=== PATIENT | female | born 1985 | race Caucasian/White ===

== ENCOUNTER 2021-03-20 11:51 | Emergency (ER) | payer BC, SELFPAY ==
[2021-03-20 12:10] VITALS: BP 128/74; PULSE 64; RESP 24; TEMP 37.1; O2SAT 99
--- NOTE | 2021-03-20 12:17 | ED.FEMALEGU ---
HPI - Female Genitourinary General Chief complaint: Urogenital-Female Stated complaint: uti complaint Source: patient and RN notes reviewed Limitations: no limitations History of Present Illness HPI Narrative: The patient, a non-smoker/occasional drinker, presents with 3-day suprapubic discomfort and dysuria this morning-reminiscent of prior UTIs. No fever, hematuria/urgency/frequency, vomiting/diarrhea, discharge/bleeding?she is G2, P2; LMP 10 February. She has mild nausea; late day [id number] urinalysis noncontributory. Patient would like antibiotics pending culture results Related Data Allergies Allergy/AdvReac Type Severity Reaction Status Date / Time naproxen Allergy Mild Hives Verified 03/20/21 12:34 Review of Systems Review of Systems: General/Constitutional: No weight loss,fever Eyes: N0: Redness,discharge Ears/Nose/Throat: No: Epistaxis,ear discharge Respiratory: Denies: Hemoptysis Gastrointestinal: No Vomiting, Bleeding-rectal Skin: No Lumps, eruption Neurologic: No Focal Weakness,Sz Hematologic: Denies: Petechiae/Purpura Psychiatric: No: Suicida ideationl All Other Systems: Reviewed and Negative [facility] Family History Family History (Updated 09/26/17 @ 15:09 by DOCTOR UNKNOWN) Grandparent Diabetes mellitus Carcinoma of colon Social History Social History Smoking status: Never smoker Second hand tobacco smoke exposure: No Alcohol intake: current Comments At time of signature, agree with nursing past medical, surgical, social and family history. There is no relevant family history pertinent to the presenting complaint Exam Narrative: General Appearance: Well appearing, Conjunctiva clear Mouth/Throat: Normal appearing, Normal lips,Neck: Supple Respiratory: Airway patent, No respiratory distress Cardiovascular: RRR Abdomen: Soft, definite suprapubic tenderness, no CVAT Musculoskeletal: Full ROM Skin: Warm, Dry Neurological: A&O x3, Normal affect Course Vital Signs Vital signs: Vital Signs Temperature 98.7 F 03/20/21 12:10 Pulse Rate 64 03/20/21 12:10 Respiratory Rate 24 H 03/20/21 12:10 Blood Pressure 128/74 03/20/21 12:10 Pulse Oximetry 99 03/20/21 12:10 Temperature 98.7 F 03/20/21 12:10 Pulse Rate 64 03/20/21 12:10 Respiratory Rate 24 H 03/20/21 12:10 Blood Pressure 128/74 03/20/21 12:10 Pulse Oximetry 99 03/20/21 12:10 MDM - Female Genitourinary Lab Data Labs: Urine Glucose Negative Reference Range: Negative Urine Bilirubin Negative Reference Range: Negative Urine Ketone Negative Reference Range: Negative Urine Specific Guston 1.015 Reference Range:1.001-1.035 Urine Blood Negative Reference Range: Negative * * Urine pH 5.5 Reference Range: 5.0-9.0 Urine Protein Negative Reference Range: Negative Urine Urobilinogen 0.2 Reference Range: 0.2-1.0 Urine Nitrate Negative Reference Range: Negative Urine Leukocyte Negative Reference Range: Negative Urine Color Yellow Reference Range: Yellow Urine Characteristics Clear Urine Characteristics Cloudy
== END 2021-03-20 12:24 | disposition home or self-care (01) ==
PROVIDERS: Emergency Provider Emergency Medicine; PCP Family Medicine
DX: R30.0 Dysuria (principal)
CPT/HCPCS: 81003; 87086; 99213; G0463

== ENCOUNTER 2021-03-24 12:52 | Emergency (ER) | payer BC, SELFPAY ==
--- NOTE | 2021-03-24 13:00 | ED.FEMALEGU ---
HPI - Female Genitourinary General Chief complaint: Urogenital-Female Stated complaint: uti complaints Time Seen by Provider: 03/24/21 13:04 Source: patient and RN notes reviewed Mode of arrival: ambulatory Limitations: no limitations History of Present Illness HPI Narrative: Freya ambulated into the [facility] today with c/o UTI s ymptoms. She was a patient here on 03/20 with similar symptoms . She was put on course of Bactrim. Urine culture result was negative for any bacterial growth. She only took two doses of Bactrim, took 6 doses of old Macrobid. She complains of bilateral suprapubic pain and being tired. She just started Bactrim yesterday . She is also taking AZO OTC. MD elicited complaint: dysuria Related Data Allergies Allergy/AdvReac Type Severity Reaction Status Date / Time naproxen Allergy Mild Hives Verified 03/24/21 13:13 Review of Systems Review of Systems: CONSTITUTIONAL: Denies body aches, fever, chills, or sweats. EYES: Denies visual changes, redness, or discharge. ENT: Denies rhinorrhea, congestion, sore throat, or otalgia. CARDIOVASCULAR: Denies chest pain, palpitations, or edema. RESPIRATORY: Denies cough or dyspnea. GASTROINTESTINAL: Denies abdominal pain, nausea, vomiting, or diarrhea. GENITOURINARY: + dysuria or hematuria. SKIN: Denies rash, itching, or wounds. MUSCULOSKELETAL: Denies back pain, joint pain, or myalgia. NEUROLOGIC: Denies headache, numbness, tingling, or weakness. PSYCH: Denies depression or anxiety. All systems reviewed & are unremarkable except as noted in HPI and below PMFSH Family History Family History Grandparent Diabetes mellitus Carcinoma of colon Social History Social History Smoking status: Never smoker Second hand tobacco smoke exposure: No Alcohol intake: current Exam Narrative: GENERAL: Well-appearing, well-nourished, and in no acute distress. HEAD: Normocephalic, atraumatic. EYES: EOMI. No redness or drainage. Conjunctivae normal. ENT: Mucous membranes pink and moist. Nares clear. No rhinorrhea. NECK: Normal AROM. Supple. No lymphadenopathy. CHEST: No respiratory distress. Clear to auscultation. HEART: Regular rate and rhythm. No murmur appreciated. Normal peripheral pulses. ABDOMEN: Soft, nontender, nondistended, normal active bowel sounds.; Patient has tenderness over the suprapubic area. Patient also has tenderness to bilateral lower back. MUSCULOSKELETAL: No bony tenderness. EXTREMITIES: Normal range of motion. No edema. SKIN: Warm, dry, no rash. Capillary refill normal. Normal skin turgor. NEURO: No focal deficits. Alert and oriented x3. Gait steady. PSYCH: Normal affect. No signs of depression or anxiety. Course Vital Signs Vital signs: Vital Signs Temperature 36.3 C L 03/24/21 13:10 Pulse Rate 85 03/24/21 13:10 Respiratory Rate 18 03/24/21 13:10 Blood Pressure 130/72 03/24/21 13:10 Pulse Oximetry 99 03/24/21 13:10 Temperature 36.3 C L 03/24/21 13:10 Pulse Rate 85 03/24/21 13:10 Respiratory Rate 18 03/24/21 13:10 Blood Pressure 130/72 03/24/21 13:10 Pulse Oximetry 99 03/24/21 13:10 Reviewed. Pt has been instructed to follow up with her PCP regarding her elevated blood pressure today. MDM - Female Genitourinary MDM Narrative Medical decision making narrative: Patient took Macrobid 1 pill daily for 3 days. This was an old prescription she had at home. She just started the Bactrim yesterday and has taken 2 doses. Patient's urine today was negative except for positive nitrates. Patient did have Azo. Patient has suprapubic tenderness with palpation. Patient also has low back pain. The antibio gram per [facility] shows that Bactrim has an increased resistance. Patient will be switched to Cipro for 5 days. Patient was encouraged to see her primary care physician for continued
[2021-03-24 13:10] VITALS: BP 130/72; PULSE 85; RESP 18; TEMP 36.3; O2SAT 99
== END 2021-03-24 13:58 | disposition home or self-care (01) ==
PROVIDERS: Emergency Provider Nurse Practitioner Family; PCP Family Medicine
DX: R30.0 Dysuria (principal)
CPT/HCPCS: 81003; 87086; 99213; G0463

== ENCOUNTER 2023-03-29 17:04 | Emergency (ER) | payer BC, SELFPAY ==
[2023-03-29] VITALS (10 sets, daily range): BP systolic 100–131; BP diastolic 54–86; PULSE 67–86; RESP 16–17; TEMP 36.9; O2SAT 96–100
--- NOTE | 2023-03-29 17:40 | ECG_ITS ---
Measurements Intervals Griffin Rate: 60 P: 59 MN: 139 QRS: -23 QRSD: 93 T: 23 QT: 376 QTc: 376 Interpretive Statements SINUS RHYTHM BORDERLINE LEFT AXIS DEVIATION [QRS AXIS < -20] LOW QRS VOLTAGE IN PRECORDIAL LEADS [QRS DEFLECTION < 1.0 mV IN CHEST LEADS] BORDERLINE ECG NO PREVIOUS ECG AVAILABLE FOR COMPARISON Electronically Signed On 03-30-2023 8:59:27 SCHEDULING CLERK by Mihai Del Toro M.D.
--- NOTE | 2023-03-29 17:40 | ED.ABDPAIN ---
HPI - Abdominal Pain General Chief Complaint: Abdominal Pain Stated Complaint: ABD PAIN Time Seen by Provider: 03/29/23 17:09 History of Present Illness HPI narrative: 37 y/o F reports for evaluation for generalized abdominal discomfort, bloating, reflux and nausea after eating x2 weeks. Pt states she has a history of reflux but has not been taking medications for this. She also states her stools have been darker than usual, however she denies gross blood and melena. Abdominal surgeries include tubal ligation. She denies chest pain, dyspnea, fever, vomiting, diarrhea, dysuria, hematuria. No known history of gastric or duodenal ulcers. Pt states she does not use NSAIDs often and drinks a couple of alcoholic drinks per week. She is not anticoagulated. She is currently not having pain. Related Data Allergies Allergy/AdvReac Type Severity Reaction Status Date / Time naproxen Allergy Mild Hives Verified 05/29/22 09:39 Review of Systems Review of Systems: CONSTITUTIONAL: Denies fever, chills, or sweats. EYES: Denies visual changes, redness, or discharge. ENT: Denies rhinorrhea, congestion, sore throat, or otalgia. CARDIOVASCULAR: Denies chest pain, palpitations, or edema. RESPIRATORY: Denies cough or dyspnea. GASTROINTESTINAL: See HPI GENITOURINARY: Denies dysuria or hematuria. SKIN: Denies rash or itching. MUSCULOSKELETAL: Denies back pain, joint pain, or myalgia. NEUROLOGIC: Denies headache, numbness, or weakness. PSYCHIATRIC: Denies anxiety or depression. 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 Surgical History Surgical History History of bilateral salpingectomy (02/24/20) History of colposcopy with cervical biopsy 12/07/12 LGSIL 12/15/13 +HPV History of gynecologic surgery (02/24/20) hscope d&c/endometrial ablation/(B) lscope salpingectomy--menometrorrhagia/dysmenorrhea/undesired fertility Family History Family History Grandparent Diabetes mellitus maternal grandfather Carcinoma of colon maternal grandfather Father Esophageal cancer Throat cancer Mother Anxiety Social History Social History Smoking status: Never smoker Second hand tobacco smoke exposure: No Alcohol intake: current Drinks per week: 1 Substance use: never Substance use type: does not use Living arrangements: with family Additional living arrangements comments: Occupation/Education: occupation Additional occupation/education comments: medical billing Gender identity (if verbalized by the patient): Female Sexual Orientation (if Verbalized by the Patient): Straight or Heterosexual Exam Narrative: GENERAL: Well-appearing, well-nourished, and in no acute distress. Patient resting comfortably in exam bed. She is pleasant and conversational. HEAD: Normocephalic, atraumatic. EYES: PERRLA and EOMI. ENT: Nares clear, no rhinorrhea or epistaxis. Mucous membranes moist. NECK: Supple. CHEST: Clear to auscultation. No respiratory distress. HEART: Regular rate and rhythm. No murmur heard. Normal peripheral pulses. ABDOMEN: Soft, nontender, nondistended, normal active bowel sounds. No guarding, rebound or rigidity. No CVA tenderness. Negative Camarena's and McBurney's. Rectal exam without hemorrhoids, fissures, melena or hematochezia. Hemoccult is negative
[2023-03-29] MEDS: SODIUM CHLORIDE 0.9% IV 1,000 ML 999 ML IV CONT (18:01)
[2023-03-29] MEDS: PANTOPRAZOLE SODIUM IV 40 MG VIAL IV PUSH (18:02)
[2023-03-29] MEDS: BELLADONNA ALK/PHENOB ELIX 10 ML, MAG HYDROX/ALUMINUM HYD/SIMETH 30 ML, LIDOCAINE HCL 2... PO (18:05)
[2023-03-29 18:10] LABS: Basophils Percent Auto 0.4 % (0.2-1.2); Eosinophils Absolute Auto 0.4 K/mm3 (0-0.3); Eosinophils Percent Auto 4.2 % (0-4.4); Hematocrit 45.8 % (37.0-47.0); Hemoglobin 15.3 g/dL (12.0-15.0); Immature Granulocyte Absolute 0.04 K/mm3 (0.00-0.031); Immature Granulocyte Percent A 0.4 % (0-0.5); Lymphocytes Absolute Auto 2.92 K/mm3 (0.9-3.2); Lymphocytes Percent Auto 30.1 % (18.3-44.2); Mean Corpuscular HGB Conc 33.4 g/dl (32-36); Mean Corpuscular Hemoglobin 30.5 pg (26-34); Mean Corpuscular Volume 91.2 fl (80-100); Mean Platelet Volume 11.7 fl (7.4-10.4); Monocytes Absolute Auto 0.6 K/mm3 (0.1-0.6); Monocytes Percent Auto 5.9 % (2.6-8.5); Neutrophils Absolute Auto 5.7 K/mm3 (1.3-6.7); Platelet Count Result 262 k/mm3 (150-375); Red Blood Count 5.02 M/mm3 (4.2-5.4); Red Cell Distribution Width 12.6 % (11.5-14.5); White Blood Count 9.7 K/mm3 (4.5-10.0)
[2023-03-29 18:24] LABS: Alanine Aminotransferase 21 U/L (6-35); Albumin Level 4.7 g/dL (3.5-5.1); Alkaline Phosphatase 66 U/L (38-126); Anion Gap 8 mmol/L (8-16); Aspartate Amino Transferase 26 U/L (14-36); Bilirubin,Total 0.6 mg/dL (0.2-1.3); Blood Urea Nitrogen 12 mg/dL (7-17); Carbon Dioxide 25 mmol/L (22-30); Chloride 105 mmol/L (98-107); Estimated CRCL calculation 127 ml/min; Estimated Glomerular Filt Rate > 60; Glucose 93 mg/dL (65-110); Lipase 94 U/L (23-300); Sodium 138 mmol/L (137-145)
[2023-03-29 18:34] LABS: Appearance Urine Cloudy (Clear); Bacteria Urine 4+ /hpf; Bilirubin Urine Negative (Negative); Blood Urine Trace (Negative); Color Urine Yellow (Yellow); Glucose Urine UA Negative (Negative); Ketones Urine Negative (Negative); Leukocyte Esterase Ur 2+ LEU/UL (Negative); Need Manual Microscopic Reviewed; Nitrate Urine Negative (Negative); Protein Urine Negative (Negative); RBC Urine 21-50 /hpf (0-2); Specific Grav Ur 1.024 (1.001-1.035); Squamous Epithelial Cell Urine Moderate /hpf (Few); Urobilinogen Urine 0.2 mg/dL (<2.0); WBC Urine 21-50 /hpf; pH Urine 5.5 (5.0-9.0)
[2023-03-29 18:36] LABS: Add Urine Microscopic? YES
== END 2023-03-29 19:24 | disposition home or self-care (01) ==
PROVIDERS: Emergency Provider Physician Assistant; PCP Family Medicine
DX: K21.9 Gastro-esophageal reflux disease without esophagitis (principal); R14.0 Abdominal distension (gaseous); R11.0 Nausea; Z90.79 Acquired absence of other genital organ(s)
CPT/HCPCS: 36415; 80053; 81001; 81025; 83690; 85025; 87086; 87088; 93005; 96361; 96374; 99284; A9270; C9113; J7030

== ENCOUNTER 2023-04-03 07:43 | Outpatient (CLI) | payer BC, SELFPAY ==
--- NOTE | ~2023-04-03 | CT_ITS ---
CT of the Abdomen and Pelvis: Indication: Abdominal pain Technique: 2.5 mm axial scans were obtained through the abdomen and pelvis following intravenous adm inistration of 100 cc of Omnipaque 350. Dose reduction technique was used on this scan by utilizing a utomated exposure control and iterative reconstruction technique. The dose-length product (DLP) was 1 191.61 mGy-cm. Findings: Scans through the lung bases are unremarkable. The liver, spleen, pancreas, gallbladder, adrenals and kidneys are within normal limits. No evidence of aortic aneurysm. No lymphadenopathy. No bowel obstruction or bowel wall thickening. There is no evidence to suggest acute appendicitis. Ti ny fat-containing umbilical hernia noted. Images through the pelvis were performed. Urinary bladder unremarkable. No definite adnexal mass seen . No ascites. Impression: Tiny fat-containing umbilical hernia, otherwise unremarkable exam. Reviewed, dictated and finalized at [facility]. TRUCTION COORDINATOR Impression: Tiny fat-containing umbilical hernia, otherwise unremarkable exam.
== END 2023-04-03 07:44 | disposition home or self-care (01) ==
PROVIDERS: PCP Family Medicine; Visit Provider Physician Assistant
DX: R10.9 Unspecified abdominal pain (principal); R14.0 Abdominal distension (gaseous); K42.9 Umbilical hernia without obstruction or gangrene
CPT/HCPCS: 74177; Q9967